=== PATIENT | female | born 1965 | race Caucasian/White ===

== ENCOUNTER 2018-01-09 07:51 | Day surgery (SDC) | payer MEDICAID ==
[2018-01-06 15:57] VITALS: BMI 29.6
[~2018-01-09 07:51] MED LIST: LACTATED RINGERS 1,000 ML IV SCH
[2018-01-09] MEDS ORDERED: LIDOCAINE 1% 20 ML VIAL (10MG/ML) FOR IV START INTRADERMA ONE (08:25)
[2018-01-09 08:27] VITALS: TEMP 98.6
[2018-01-09] MEDS ORDERED: LIDOCAINE 1% INJ 10MG/ML (20 ML MDV) ONE (08:56)
[2018-01-09] MEDS ORDERED: PROPOFOL 10 MG/ML 20 ML VIAL IV ONE (08:56)
--- NOTE | 2018-01-09 09:11 | P.GSHP ---
History of Present Illness H&P Date: 01/09/18 Chief Complaint: GERD Patient here today for upper endoscopy. She has not had one previously. She has history of chronic reflux. She has been on omeprazole daily for the last 10 -20 years. She may have mild dysphagia times. Past Medical History Past Medical History: Asthma, Fibromyalgia, GERD/Reflux, Hypertension, Osteoarthritis (OA) Additional Past Medical History / Comment(s): allergy induced asthma, lost weight & no longer needs BP med. History of Any Multi-Drug Resistant Organisms: None Reported Past Surgical History: Cholecystectomy, Hysterectomy, Orthopedic Surgery, Tonsillectomy Additional Past Surgical History / Comment(s): sinus surg., arthroscopy knee Past Anesthesia/Blood Transfusion Reactions: Previous Problems w/ Anesthesia Additional Past Anesthesia/Blood Transfusion Reaction / Comment(s): very high BP after sinus surg-thinks was probably due to a medication given not anesthesia Smoking Status: Never smoker - Past Family History Mother Family Medical History: No Reported History Medications and Allergies Home Medications Medication Instructions Recorded Confirmed Type Fluticasone Propionate 1 spray INHALATION DAILY 07/30/15 01/06/18 History Meloxicam [Meloxicam] 15 mg PO DAILY 07/30/15 01/06/18 History Cholecalciferol [Vitamin D3] 1,000 unit PO DAILY 01/06/18 01/06/18 History Fexofenadine HCl [Marivel Allergy] 180 mg PO DAILY 01/06/18 01/06/18 History Multivit with Calcium,Iron,Min 1 each PO DAILY 01/06/18 01/06/18 History [Women's Multivitamin] Omeprazole [PriLOSEC] 20 mg PO Q2D 01/06/18 01/06/18 History Allergies Allergy/AdvReac Type Severity Reaction Status Date / Time Penicillins Allergy Rash/Hives Verified 01/09/18 07:59 Sulfa (Sulfonamide Allergy Rash/Hives Verified 01/09/18 07:59 Antibiotics) codeine AdvReac Confusion Verified 01/09/18 07:59 Surgical - Exam Vital Signs Temp Pulse Resp BP Pulse Ox 98.6 F 85 16 139/84 100 01/09/18 08:26 01/09/18 08:26 01/09/18 08:26 01/09/18 08:26 01/09/18 08:26 Physical exam: General: Well-developed, well-nourished HEENT: Normocephalic, sclerae nonicteric Abdomen: Nontender, nondistended Extremities: No edema Neuro: Alert and oriented Assessment and Plan (1) GERD (gastroesophageal reflux disease) Narrative/Plan: Will proceed with upper endoscopy at this time. Current Visit: Yes Status: Acute Code(s): K21.9 - GASTRO-ESOPHAGEAL REFLUX DISEASE WITHOUT ESOPHAGITIS SNOMED Code(s): 765255473
--- NOTE | 2018-01-09 09:18 | P.PCN ---
Date of Procedure: 01/09/18 Procedure(s) Performed: Preoperative Dx: GERD Postoperative Dx: Mild duodenitis, mild gastritis Procedure: EGD with Bx Anesthesia: Sedation Endoscopist: Dr. Bear Specimens: Duodenum, antrum Endoscopic Procedure: The patient was on the endoscopy table in the left decubitus position. The Olympus gastroscope was inserted into the oropharynx and passed under direct visualization to the region of the third portion of the duodenum. From that point the scope was slowly withdrawn inspecting all surfaces carefully. There was mild duodenitis present. A biopsy was taken. The pylorus was widely patent. The stomach was carefully inspected. There was gastritis present. A biopsy of the antrum took place to rule out H. pylori. Retroflexion revealed a normal hiatus. The esophagus was then carefully examined. There were no neoplastic inflammatory or polypoid lesions throughout the visualized esophagus. The patient was then taken to the recovery room in stable condition per anesthesia guidelines. Recommendations: Await biopsy results. Continue when necessary antiacid therapy.
[2018-01-09 09:34] VITALS: BP 112/72; PULSE 74; RESP 18
== END 2018-01-09 09:55 | disposition home or self-care (01) ==
LOC: ORWHC2ENDO 07:51
PROVIDERS: ATTEND Surgery
DX: K29.50 Unspecified chronic gastritis without bleeding (principal); K21.9 Gastro-esophageal reflux disease without esophagitis; K29.80 Duodenitis without bleeding; J45.909 Unspecified asthma, uncomplicated; M79.7 Fibromyalgia; I10 Essential (primary) hypertension; M19.90 Unspecified osteoarthritis, unspecified site; Z90.49 Acquired absence of other specified parts of digestive tract; Z90.710 Acquired absence of both cervix and uterus; Z79.51 Long term (current) use of inhaled steroids; Z79.1 Long term (current) use of non-steroidal anti-inflammatories (NSAID); Z79.899 Other long term (current) drug therapy; Z88.0 Allergy status to penicillin; Z88.2 Allergy status to sulfonamides; Z88.5 Allergy status to narcotic agent
CPT/HCPCS: 88305; 43239; J2001; J2704

== ENCOUNTER → 2018-09-10 | Outpatient (CLI) | payer MEDICAID ==
[2018-09-10 08:18] LABS: HCT 42.1 % (34.0-46.0); HGB 13.5 gm/dL (11.4-16.0); MCH 27.8 pg (25.0-35.0); MCHC 32.2 g/dL (31.0-37.0); MCV 86.5 fL (80.0-100.0); Mean Platelet Volume 6.8; Platelet Count 309 k/uL (150-450); RBC 4.86 m/uL (3.80-5.40); RDW 13.4 % (11.5-15.5); WBC 4.6 k/uL (3.8-10.6)
[2018-09-10 08:29] LABS: ALT 27 U/L (9-52); AST 22 U/L (14-36); Albumin 4.1 g/dL (3.5-5.0); Alkaline Phosphatase 69 U/L (38-126); Anion Gap 9 mmol/L; Blood Urea Nitrogen 18 mg/dL (7-17); Calcium 9.4 mg/dL (8.4-10.2); Carbon Dioxide 25 mmol/L (22-30); Chloride 105 mmol/L (98-107); Cholesterol 185 mg/dL (<200); Glucose 92 mg/dL (74-99); HDL Cholesterol 51 mg/dL (40-60); LDL Cholesterol,Calculated 114 mg/dL (0-99); Potassium 5.1 mmol/L (3.5-5.1); Sodium 139 mmol/L (137-145); Total Bilirubin 0.4 mg/dL (0.2-1.3); Total Protein 7.8 g/dL (6.3-8.2); Triglycerides 101 mg/dL (<150)
[2018-09-10 08:45] LABS: T4, Free (Free Thyroxine) 1.28 ng/dL (0.78-2.19)
== END ==
LOC: LABWHC1 07:23
PROVIDERS: ATTEND Family Medicine
DX: Z00.00 Encounter for general adult medical examination without abnormal findings (principal)
CPT/HCPCS: 36415; 80053; 80061; 84439; 84443; 85027

== ENCOUNTER → 2018-10-07 | Outpatient (CLI) | payer MEDICAID ==
--- NOTE | 2018-10-08 10:00 | BD ---
EXAMINATION TYPE: Axial Bone Density DATE OF EXAM: 10/07/2018 COMPARISON: DEXA bone scan May 25, 2014 CLINICAL HISTORY: Postmenopausal female Height: 67.5 Weight: 229.2 FRAX RISK QUESTIONS: Alcohol (3 or more units per day): no Family History (Parent hip fracture): no Glucocorticoids (More than 3mos): no (Ex: prednisone, prednisolone, methylprednisolone, dexamethasone, and hydrocortisone). History of Fracture in Adulthood: no Secondary Osteoporosis: 1. Type 1 Diabetes: no 2. Hyperthyroidism: no 3. Menopause before 45: yes 4. Malnutrition: no 5. Chronic liver disease: no Rheumatoid Arthritis: no Current Tobacco Use: no RISK FACTORS HISTORY OF: Family History of Osteoporosis: yes Active: yes Diet low in dairy products/other sources of calcium: no Postmenopausal woman: age 37 Lost more than 2 inches in height since high school: no MEDICATIONS: mobic, omeprazole Additional History: EXAM MEASUREMENTS: Bone mineral densitometry was performed using the Weblance System. Bone mineral density as measured about the Lumbar spine is: ----- L1-L4(G/cm2): 1.344 T Score Values are as follows: ----- L2: 1.2 ----- L3: 1.7 ----- L4: 1.7 ----- L1-L4: 1.4 Bone mineral density has: decreased -6.1 % since study of: 05.25.2014 Bone mineral density about the R hip (g/cm2): 1.121 Bone mineral density about the L hip (g/cm2): 1.153 T Score values are as follows: -----R Neck: 0.6 -----L Neck: 0.8 -----R Total: 1.9 -----L Total: 1.9 Bone mineral density has: decreased -7.1 % since study of: 05.25.2014 IMPRESSION: Normal (Values between +1 and -1 indicate normal bone mass). Consider repeating this study in 5 year s or sooner if there is some new clinical indication. NOTE: T-SCORE=SD OF THE YOUNG ADULT MEAN.
--- NOTE | 2018-10-08 12:23 | MM ---
Reason for exam: screening (asymptomatic). Last mammogram was performed 1 year ago. History: Patient is postmenopausal and had first child at age 29. Benign US left guided mammotome of the left breast, February 09, 2008. Took hormonal contraceptives for 8 years beginning at age 18. Physical Findings: A clinical breast exam by your physician is recommended on an annual basis and results should be correlated with mammographic findings. MG 3D Screening Mammo W/Cad Bilateral CC and MLO view(s) were taken. Prior study comparison: September 26, 2017, bilateral MG 3d screening mammo w/cad. September 16, 2016, bilateral MG 3d screening mammo w/cad. The breast tissue is heterogeneously dense. This may lower the sensitivity of mammography. Stable calcifications. No significant changes when compared with prior studies. ASSESSMENT: Benign, BI-RAD 2 RECOMMENDATION: Routine screening mammogram of both breasts in 1 year.
== END | disposition home or self-care (01) ==
LOC: RADMAMWWP 15:38
PROVIDERS: ATTEND Obstetrics & Gynecology
DX: Z12.31 Encounter for screening mammogram for malignant neoplasm of breast (principal); Z13.820 Encounter for screening for osteoporosis
CPT/HCPCS: 77063; 77067; 77080

== ENCOUNTER → 2019-12-17 | Outpatient (CLI) | payer MEDICAID ==
--- NOTE | 2019-12-20 14:06 | MM ---
Reason for exam: screening (asymptomatic). Last mammogram was performed 1 year and 2 months ago. History: Patient is postmenopausal and had first child at age 29. Benign US left guided mammotome of the left breast, February 09, 2008. Took hormonal contraceptives for 8 years beginning at age 18. Physical Findings: A clinical breast exam by your physician is recommended on an annual basis and results should be correlated with mammographic findings. MG 3D Screening Mammo W/Cad Bilateral CC and MLO view(s) were taken. Prior study comparison: October 07, 2018, bilateral MG 3d screening mammo w/cad. September 26, 2017, bilateral MG 3d screening mammo w/cad. The breast tissue is heterogeneously dense. This may lower the sensitivity of mammography. There are benign appearing round calcifications bilaterally. Previous mammotome biopsy in the left breast. There is no discrete abnormality. ASSESSMENT: Benign, BI-RAD 2 RECOMMENDATION: Routine screening mammogram of both breasts in 1 year.
== END | disposition home or self-care (01) ==
LOC: RADMAMWWP 15:34
PROVIDERS: ATTEND Obstetrics & Gynecology
DX: Z12.31 Encounter for screening mammogram for malignant neoplasm of breast (principal)
CPT/HCPCS: 77063; 77067

== ENCOUNTER → 2020-01-28 | Outpatient (CLI) | payer MEDICAID ==
--- NOTE | 2020-01-28 16:41 | MR ---
EXAMINATION TYPE: MR shoulder RT wo con DATE OF EXAM: 01/28/2020 COMPARISON: Outside right shoulder x-ray January 12, 2020. HISTORY: Rt shoulder pain per order. Additional symptoms of difficulty raising overhead per patient. TECHNIQUE: Multiplanar, multisequence imaging of the right shoulder is performed without contrast. FINDINGS: Rotator Cuff: Some increased signal in distal supraspinatus tendon. There is more prominent increased signal involving the infraspinatus tendon near humeral head insertion without focal tear. Subscapula ris tendon felt intact. Rotator cuff muscle bulk preserved. Acromioclavicular Joint: Moderate capsular hypertrophy with fluid seen superior to the AC joint. This becomes more focal anteriorly raising concern for bursitis. Prominent spur from inferior margin of t he distal clavicle. Subchondral cystic change in the distal clavicle. Distal acromion morphology unre markable. Loss of underlying fat plane noted. Glenohumeral Joint: Mild to moderate narrowing most prominent inferiorly with small to moderate gleno humeral joint effusion. No significant spurring. Labrum: The labrum appears grossly intact given limitation of non-arthrogram study. Biceps Tendon: The long head of biceps is in normal location within bicipital groove. Bone marrow signal: Subchondral cystic changes superolateral aspect humeral head including a dominant 1.4 cm thin-walled cyst favor subchondral cyst anteriorly axial image 13. Other: Fluid signal subdeltoid/subacromial bursa. IMPRESSION: 1. Tendinosis of the supraspinatus and to a slightly greater degree infraspinatus tendons. No signifi cant tearing. 2. Fairly moderate degenerative changes right shoulder as detailed above. Underlying impingement susp ected. 3. Mild to moderate subdeltoid/subacromial bursitis.
== END | disposition home or self-care (01) ==
LOC: RADMRIMAIN 15:46
PROVIDERS: ATTEND Orthopaedic Surgery
DX: M19.011 Primary osteoarthritis, right shoulder (principal); M67.813 Other specified disorders of tendon, right shoulder

== ENCOUNTER → 2020-12-12 | Outpatient (CLI) | payer MEDICAID ==
--- NOTE | 2020-12-12 15:55 | MR ---
EXAMINATION TYPE: MR knee LT wo con DATE OF EXAM: 12/12/2020 COMPARISON: Radiograph 11/15/2020 HISTORY: 55-year-old female left knee pain TECHNIQUE: Multiplanar, multisequence imaging of the left knee is performed without IV contrast. FINDINGS: The ACL, PCL, and LCL complex appear intact. There is some thickening of the proximal to mid MCL sugg esting old injury. Degenerative signal within the posterior horn and body of the medial meniscus. There is truncation to the inner margin of the meniscal body suggesting inner margin radial tear. Degenerative spurring in the medial compartment with mild superficial cartilage loss along the mid we ightbearing aspect. Lateral meniscus is intact. There is moderate irregular cartilage loss along the mid weightbearing as pect of the tibial articular surface measuring 9 mm. Marginal spurring is present. There is more severe full-thickness cartilage loss along the lateral patellar facet and lateral troch lear facet. Moderate irregular cartilage loss along the medial trochlear facet. Marginal spurring is present with degenerative subchondral signal changes. Extensor mechanism is intact. Thickening and intermediate signal involving some of the semimembranosu s insertion onto the tibia. Small knee joint effusion. Small Penn cyst measuring 6.0 cm. Normal popliteal artery anatomy and muscle bulk. No suspicious bone marrow replacement. IMPRESSION: 1. Some truncation to the body of the medial meniscus suggesting inner margin fraying/radial tear. De generative signal within the remaining posterior horn and body. 2. Moderate to severe patellofemoral compartmental osteoarthrosis. 3. Focal 9 mm moderate thickness irregular cartilage loss along the mid weightbearing aspect of the l ateral femoral condyle. 4. Mild to moderate strain at the semimembranosus insertion. 5. Small knee joint effusion and small Penn's cyst.
== END | disposition home or self-care (01) ==
LOC: RADMRIMAIN 11:18
PROVIDERS: ATTEND Orthopaedic Surgery
DX: S86.812A Strain of other muscle(s) and tendon(s) at lower leg level, left leg, initial encounter (principal); M17.12 Unilateral primary osteoarthritis, left knee

== ENCOUNTER → 2021-02-01 | Outpatient (CLI) | payer MEDICAID ==
[2021-02-01 14:51] LABS: Basophils # (A) 0.1 k/uL (0-0.2); Basophils % (A) 1 %; Eosinophils # (A) 0.2 k/uL (0-0.7); Eosinophils % (A) 5 %; HGB 14.5 gm/dL (11.4-16.0); Lymphocytes % (A) 39 %; MCV 84.9 fL (80.0-100.0); Monocytes # (A) 0.4 k/uL (0-1.0); Monocytes % (A) 8 %; Neutrophils # (A) 2.2 k/uL (1.3-7.7); Neutrophils % (A) 44 %; Platelet Count 335 k/uL (150-450); RBC 5.18 m/uL (3.80-5.40); RDW 13.1 % (11.5-15.5); WBC 5.1 k/uL (3.8-10.6)
== END | disposition home or self-care (01) ==
LOC: LABPAT 13:20
PROVIDERS: ATTEND Orthopaedic Surgery
DX: Z01.812 Encounter for preprocedural laboratory examination (principal); M23.92 Unspecified internal derangement of left knee
CPT/HCPCS: 36415; 80051; 85025; 93005

== ENCOUNTER → 2021-02-12 | Outpatient (CLI) | payer MEDICAID ==
--- NOTE | 2021-02-14 11:44 | MM ---
Reason for exam: screening (asymptomatic). Last mammogram was performed 1 year and 2 months ago. History: Patient is postmenopausal and had first child at age 29. Benign US left guided mammotome of the left breast, February 09, 2008. Took hormonal contraceptives for 8 years beginning at age 18. Physical Findings: A clinical breast exam by your physician is recommended on an annual basis and results should be correlated with mammographic findings. MG 3D Screening Mammo W/Cad Bilateral CC and MLO view(s) were taken. Prior study comparison: December 17, 2019, bilateral MG 3d screening mammo w/cad. October 07, 2018, bilateral MG 3d screening mammo w/cad. The breast tissue is heterogeneously dense. This may lower the sensitivity of mammography. No significant changes when compared with prior studies. ASSESSMENT: Benign, BI-RAD 2 RECOMMENDATION: Routine screening mammogram of both breasts in 1 year.
== END ==
LOC: RADMAMWWP 15:52
PROVIDERS: ATTEND Obstetrics & Gynecology
DX: Z12.31 Encounter for screening mammogram for malignant neoplasm of breast (principal); Z78.0 Asymptomatic menopausal state
CPT/HCPCS: 77063; 77067

== ENCOUNTER 2021-02-14 09:09 | Day surgery (SDC) | payer MEDICAID ==
[2021-02-12 15:54] VITALS: BMI 34.0
--- NOTE | 2021-02-13 15:15 | HP ---
HISTORY AND PHYSICAL Surgery is 02/14/2021. Lyndsey Rudd is a 55-year-old patient seen with progressive left knee pain. We discussed options for treatment. She elected to proceed with arthroscopy. Consent was obtained. PAST MEDICAL HISTORY: Asthma, osteoarthritis. PAST SURGICAL HISTORY: Left knee arthroscopy. DAILY MEDICATIONS: 1. Prilosec. 2. Flonase. 3. Mobic. ALLERGIES: PENICILLIN, SULFA. SOCIAL HISTORY: She denies tobacco use. PHYSICAL EVALUATION OF THE LEFT KNEE: Range of motion is -2 to 110. Mild effusion. Tenderness medial joint line. Positive medial Carito's. Medial patellofemoral crepitus on range of motion. Pain with patellofemoral compression. Ligaments stable. Hip rotation without pain. Distal neurovascular exam is intact. Radiographs of the left knee revealed moderate osteoarthritic changes of the left knee. MRI revealed medial meniscal tear. IMPRESSION: 1. Internal derangement left knee with medial meniscal tear. 2. Asthma. 3. History of osteoarthritis. PLAN: Left knee arthroscopy with partial meniscectomy, partial synovectomy and debridement. MMODL / IJN: [id number] /
[~2021-02-14 09:09] MED LIST changes: +DEXAMETHASONE SOD PHOSPHATE 4 MG/ML 1 ML VIAL IV PRN; +KETOROLAC 15 MG/ML 1 ML VIAL IVP SCH; +LIDOCAINE 1% (10MG/ML) FOR IV START INTRADERMA PRN; +METOCLOPRAMIDE 5 MG/ML 2 ML VIAL IVP PRN; +ONDANSETRON 4 MG/2 ML VIAL IVP PRN
[2021-02-14] MEDS ORDERED: SCOPOLAMINE 1.5MG/72HR PATCH TRANSDERM ONE (09:55)
[2021-02-14 10:04] VITALS: TEMP 98.3
[2021-02-14] MEDS ORDERED: PROPOFOL 10 MG/ML 20 ML VIAL IV ONE (10:43)
[2021-02-14] MEDS ORDERED: SUCCINYLCHOLINE CHLORIDE 100 MG/5 ML SYR IV ONE (10:43)
[2021-02-14] MEDS ORDERED: fentaNYL (PF) 50 MCG/ML 2 ML AMP ONE (10:43)
[2021-02-14] MEDS ORDERED: LIDOCAINE 1% INJ 10MG/ML (20 ML MDV) ONE (10:43)
[2021-02-14] MEDS ORDERED: MIDAZOLAM 2 MG/2 ML VIAL ONE (10:43)
[2021-02-14] MEDS ORDERED: BUPIVACAINE (PF) 0.25% 30 ML VIAL SQ ONE ×2 (11:06→11:20)
--- NOTE | 2021-02-14 11:38 | P.OP ---
Date of Procedure: 02/14/21 Preoperative Diagnosis: Internal derangement left knee Postoperative Diagnosis: 1. Tear medial meniscus left knee 2. Medial plica left knee 3. Reactive synovitis medial, lateral and suprapatellar compartments left knee 4. Grade 2 chondromalacia medial femoral condyle left knee 5. Grade 4 chondromalacia patellofemoral joint left knee Procedure(s) Performed: 1. Arthroscopic partial medial meniscectomy left knee 2. Arthroscopic resection medial plica left knee 3. Arthroscopic partial synovectomy medial, lateral and suprapatellar compartments left knee 4. Arthroscopic chondroplasty femoral condyle left knee Anesthesia: JESSICA, local Surgeon: Arnold Lozano Estimated Blood Loss (ml): 7 Pathology: none sent Condition: stable Disposition: PACU Indications for Procedure: 55-year-old patient seen with progressive left knee pain. After treatment options were discussed, she elected to proceed with arthroscopy. Operative Findings: See description of procedure Description of Procedure: Patient was taken to the operative suite. Patient underwent a general anesthetic by the department of anesthesia. Patient was given preoperative antibiotics. The left lower extremity was placed in a well-padded arthroscopic leg carbajal. The left leg was prepped and draped in the normal sterile orthopedic fashion. A lateral parapatellar and suprapatellar incision was made. Trochars were inserted. Arthroscopy was initiated. Suprapatellar pouch revealed diffuse thick reactive synovitis. The patellofemoral joint appeared to articulate congruently. There was grade 4 chondromalacia of the patella and femoral sulcus with large areas of exposed bone on both sides. The scope was guided into the medial gutter. Is a very large medial plica which impinged along the medial femoral condyle with range of motion. There appeared to be some erosion of the articular cartilage in that area as well. The scope was then guided into the medial compartment. A medial parapatellar incision was made. Trocar inserted followed by probe. There was a small radial tear posterior horn medial meniscus. There was an area of grade 2 chondromalacia medial femoral condyle with some osteochondral flap tears. There was some thick reactive synovitis anteriorly. I performed a partial medial meniscectomy getting down to stable meniscal tissue. I performed a chondroplasty of the medial femoral condyle getting down to stable osteochondral tissue. I performed a partial synovectomy decompressing the reactive synovitis anteriorly. The residual meniscus was stable. The residual osteochondral surface was stable. There was good decompression of the synovitis. Scope and probe were then guided into the intercondylar notch. Cruciates were identified, probed and found to be stable. The scope and probe were then guided into lateral compartment. Lateral meniscus revealed some mild fraying along the midbody area. There were some grade 1 chondromalacia changes lateral compartment. There was thick reactive synovitis anteriorly. I introduced a motorized shaver. I debrided the area of superficial fraying. I performed a partial synovectomy decompressing the reactive synovitis. The shaver was removed. There was good decompression of synovitis. The scope was in guided back into the suprapatellar compartment. I introduced a motorized shaver into the super patellar compartment. I resected that medial plica. I performed a partial synovectomy decompressing the thick reactive synovitis. The shaver was removed. I now took the knee through range of motion and noted complete resection medial plica and no impingement of the medial femoral condyle. There was good decompression of synovitis. I took one more look around the entire knee, no residual debris. Instruments were now removed from the joint. The joint was infiltrated with .25% Marcaine. Steri-Strips were applied to the portal sites. Sterile dressings were applied. The patient was placed into a JESSICA hose. No tourniquet was utilized. The patient was awakened, transferred to a bed and taken to recovery stable satisfactory condition.
[2021-02-14] MEDS: HYDROmorphone 0.5 MG/0.5 ML SYRINGE IVP PRN ×4 (11:40→12:36)
[2021-02-14] MEDS ORDERED: KETOROLAC 15 MG/ML 1 ML VIAL IVP ONE (11:42)
[2021-02-14] MEDS ORDERED: LACTATED RINGERS 1,000 ML IV ONE ×2 (11:43)
[2021-02-14 13:31] VITALS: BP 156/84; PULSE 77; RESP 16
== END 2021-02-14 13:51 | disposition home or self-care (01) ==
LOC: OR 09:09
PROVIDERS: ATTEND Orthopaedic Surgery
DX: M23.322 Other meniscus derangements, posterior horn of medial meniscus, left knee (principal); M67.52 Plica syndrome, left knee; M65.862 Other synovitis and tenosynovitis, left lower leg; M22.42 Chondromalacia patellae, left knee; J45.909 Unspecified asthma, uncomplicated; M19.90 Unspecified osteoarthritis, unspecified site; M79.7 Fibromyalgia; Z79.899 Other long term (current) drug therapy; Z88.0 Allergy status to penicillin; Z88.2 Allergy status to sulfonamides; Z88.5 Allergy status to narcotic agent
CPT/HCPCS: 29881; J2250; J1100; J0690; J2405; J2001; J3010; J1885; J0330; J2704; J1170

== ENCOUNTER → 2021-09-13 | Outpatient (CLI) | payer MEDICAID ==
[2021-09-13 11:21] LABS: HCT 44.3 % (37.2-46.3); MCH 27.2 pg (27.0-32.0); MCHC 31.6 g/dL (32.0-37.0); Mean Platelet Volume 9.8 fL (9.5-12.2); Platelet Count 364 X 10*3/uL (140-440); RBC 5.15 X 10*6/uL (4.10-5.20); RDW 13.3 % (11.5-14.5); WBC 4.83 X 10*3/uL (4.50-10.00)
[2021-09-13 15:28] LABS: African American GFR (CKD) 111.8 (60.0-200.0); Albumin 4.5 g/dL (3.8-4.9); Albumin/Globulin Ratio 1.4 (1.60-3.17); Anion Gap 14.6 mmol/L (4.00-12.00); BUN/Creat Ratio 24.45 Ratio (12.00-20.00); Blood Urea Nitrogen 16.6 mg/dL (9.0-27.0); Calcium 9.5 mg/dL (8.7-10.3); Carbon Dioxide 22.3 mmol/L (21.6-31.8); Chol/HDL Ratio 3.53 Ratio; Globulin 3.2 g/dL (1.6-3.3); HDL Cholesterol 50.1 mg/dL (40.00-60.00); LDL Cholesterol,Calculated 105.3 mg/dL (0.0-131.0); Non-African American GFR(CKD) 96.5 (60.0-200.0); Potassium 4.9 mmol/L (3.5-5.5); Total Bilirubin 0.3 mg/dL (0.30-1.20); Total Protein 7.7 g/dL (6.2-8.2); VLDL Calculation 21.6 mg/dL (5.00-40.00)
== END | disposition home or self-care (01) ==
LOC: LABWHC1 07:46
PROVIDERS: ATTEND Family Medicine
DX: Z00.00 Encounter for general adult medical examination without abnormal findings (principal)
CPT/HCPCS: 36415; 80053; 80061; 82306; 84439; 84443; 85027

== ENCOUNTER → 2022-01-03 | Outpatient (CLI) | payer MEDICAID, OTHER ==
[~2022-01-03] MED LIST changes: -DEXAMETHASONE SOD PHOSPHATE 4 MG/ML 1 ML VIAL IV PRN; -KETOROLAC 15 MG/ML 1 ML VIAL IVP SCH; -LACTATED RINGERS 1,000 ML IV SCH; -LIDOCAINE 1% (10MG/ML) FOR IV START INTRADERMA PRN; -METOCLOPRAMIDE 5 MG/ML 2 ML VIAL IVP PRN; -ONDANSETRON 4 MG/2 ML VIAL IVP PRN; +SODIUM CHLORIDE 0.9% 50 ML IVPB ONE; +SODIUM CHLORIDE 0.9% 500 ML 500 ML in EMPTY BAG 1 BAG IV PRN; +SOTROVIMAB (EUA) 500 MG in SODIUM CHLORIDE 0.9% 100 ML IVPB ONE
[2022-01-03 13:49] VITALS: TEMP 99.5
[2022-01-03 13:55] VITALS: RESP 16
[2022-01-03 14:33] VITALS: BP 147/83; PULSE 79
== END | disposition home or self-care (01) ==
LOC: PROCWHC3 12:56
PROVIDERS: ATTEND Family Medicine
DX: U07.1 COVID-19 (principal)
CPT/HCPCS: 96360; Q0247; M0247

== ENCOUNTER → 2022-02-25 | Outpatient (CLI) | payer MEDICAID ==
--- NOTE | 2022-02-26 15:16 | MM ---
Reason for exam: screening (asymptomatic). Last mammogram was performed 1 year ago. History: Patient is postmenopausal and had first child at age 29. Benign US left guided mammotome of the left breast, February 09, 2008. Took hormonal contraceptives for 8 years beginning at age 18. Physical Findings: A clinical breast exam by your physician is recommended on an annual basis and results should be correlated with mammographic findings. MG 3D Screening Mammo W/Cad Bilateral CC and MLO view(s) were taken. Prior study comparison: February 12, 2021, bilateral MG 3d screening mammo w/cad. December 17, 2019, bilateral MG 3d screening mammo w/cad. October 07, 2018, bilateral MG 3d screening mammo w/cad. Finding: There are increased coarse heterogeneous, grouped/clustered calcifications in the middle position of the right breast CC view. New finding since February 12, 2021, December 17, 2019, and October 07, 2018. ASSESSMENT: Incomplete: need additional imaging evaluation, BI-RAD 0 RECOMMENDATION: Special view mammogram of the right breast. [facility] will attempt to contact patient to return for supplemental views.
== END | disposition home or self-care (01) ==
LOC: RADMAMWWP 16:00
PROVIDERS: ATTEND Obstetrics & Gynecology
DX: Z12.31 Encounter for screening mammogram for malignant neoplasm of breast (principal)
CPT/HCPCS: 77063; 77067

== ENCOUNTER → 2022-03-04 | Outpatient (CLI) | payer MEDICAID ==
--- NOTE | 2022-03-05 11:19 | MM ---
Reason for exam: additional evaluation requested from abnormal screening. Last mammogram was performed less than 1 month ago. History: Patient is postmenopausal and had first child at age 29. Benign US left guided mammotome of the left breast, February 09, 2008. Took hormonal contraceptives for 8 years beginning at age 18. Physical Findings: A clinical breast exam by your physician is recommended on an annual basis and results should be correlated with mammographic findings. MG 3D Work Up W/Cad RT CC and LM view(s) were taken of the right breast. Prior study comparison: February 25, 2022, bilateral MG 3d screening mammo w/cad. February 12, 2021, bilateral MG 3d screening mammo w/cad. There are scattered fibroglandular densities. 6 o'clock central right breast microcalcifications are heterogeneous and new. Biopsy recommended. ASSESSMENT: Suspicious, BI-RAD 4 RECOMMENDATION: Stereotactic core biopsy of the right breast. Called Dr. Siu's office with mammographic findings and has scheduled an appointment for the patient for 04/25/22 at 10:[address] Bear. Biopsy scheduled for 03/25/22 at 7:30. PRELIMINARY REPORT CALLED AND FAXED TO DR. BEAR ON 03/05/22.
== END | disposition home or self-care (01) ==
LOC: RADMAMWWP 13:44
PROVIDERS: ATTEND Obstetrics & Gynecology
DX: R92.8 Other abnormal and inconclusive findings on diagnostic imaging of breast (principal)
CPT/HCPCS: 77061; 77065

== ENCOUNTER → 2022-03-25 | Day surgery (SDC) | payer MEDICAID ==
--- NOTE | 2022-03-25 16:07 | MM ---
EXAMINATION TYPE: MG stereo VAD BX RIGHT DATE OF EXAM: 03/25/2022 COMPARISON: NONE CLINICAL HISTORY: Abnormal mammogram, calcifications TECHNIQUE: Stereotactic guided core biopsy of right breast. FINDINGS: The procedure of stereotactic guided core biopsy was explained to the patient. Benefits, alternatives, and risks were discussed. An informed consent was then obtained. The shortness pathway for biopsy was chosen. Shortness pathway was superior approach. Targeting was provided by radiology. The procedure was performed by radiology. Skin was anesthetized 1% lidocaine. Deeper breast tissue was anesthetized with 1% lidocaine. A vacuum assisted biopsy gun was used to obtain 6 core samples. There is deployment of a core marker at the biopsy site. The patient tolerated the procedure well without any immediate complication. The patient was kept in the radiology department for short stay after the procedure and then discharged home in stable condition. Specimen: Targeted calcifications are identified in specimen mammogram. IMPRESSION: 1. Successful serotactic core biopsy right breast calcifications.. Recommendations: 1. Recommendations are pending pathology results. Pathology Results: Benign RIGHT BREAST, CORE BIOPSY: Fibroadenomatoid fibrosis with microcalcification and apocrine metaplasia. Negative for in situ or invasive malignancy. Recommendation Follow up mammogram of the right breast in 6 months. AUBREY
== END ==
LOC: RADMAMWWP 12:42
PROVIDERS: ATTEND Surgery
DX: N60.81 Other benign mammary dysplasias of right breast (principal)
CPT/HCPCS: 19081; 88305; A4648

== ENCOUNTER → 2022-11-08 | Outpatient (CLI) | payer MEDICAID ==
--- NOTE | 2022-11-08 14:17 | MM ---
Reason for Exam: Follow-up at short interval from prior study. Last screening mammogram was performed 9 month(s) ago. Patient History: Menarche at age 10. First Full-Term at age 29. Late child-bearing (after 28). Hysterectomy at age 37. Postmenopausal. Patient has history of breast feeding. Hormonal Contraceptives, starting at age 18 for 8 years. 03/25/2022, Benign Core Biopsy on the right side. 02/09/2008, Benign Core Biopsy on the left side. Risk Values: Alejandra 5 year model risk: 2.9%. NCI Lifetime model risk: 14.9%. Prior Study Comparison: 02/12/2021 Bilateral Screening Mammogram, [facility]. 02/25/2022 Bilateral Screening Mammogram, [facility]. 03/04/2022 Right Diagnostic Mammogram, [facility]. Tissue Density: Right: There are scattered fibroglandular densities. Findings: Analyzed By CAD. There is mammotome biopsy clip in the right breast. There are scattered and loosely grouped small benign-appearing round calcifications in the right breast redemonstrated. Benign-appearing right axillary lymph nodes redemonstrated. No suspicious new distortion or group of microcalcification in the right breast. Overall Assessment: Benign, BI-RAD 2 Management: Screening Mammogram of both breasts in 4 months. Back on annual bilateral schedule. Results were given to the patient verbally at the time of exam. Electronically signed and approved by: Rich Sethi M.D.
== END | disposition home or self-care (01) ==
LOC: RADMAMWWP 12:57
PROVIDERS: ATTEND Surgery
DX: R92.8 Other abnormal and inconclusive findings on diagnostic imaging of breast (principal); Z78.0 Asymptomatic menopausal state
CPT/HCPCS: 77061; 77065

== ENCOUNTER → 2023-05-05 | Outpatient (CLI) | payer MEDICAID ==
--- NOTE | 2023-05-06 08:12 | MM ---
Reason for Exam: Screening (asymptomatic). Last mammogram was performed 1 year(s) and 3 month(s) ago. Patient History: Menarche at age 10. First Full-Term at age 29. Late child-bearing (after 28). Hysterectomy at age 37. Postmenopausal. Patient has history of breast feeding. Hormonal Contraceptives, starting at age 18 for 8 years. 03/25/2022, Benign Core Biopsy on the right side. 02/09/2008, Benign Core Biopsy on the left side. Risk Values: Alejandra 5 year model risk: 2.9%. NCI Lifetime model risk: 14.9%. Prior Study Comparison: 02/25/2022 Bilateral Screening Mammogram, [facility]. 03/04/2022 Right Diagnostic Mammogram, [facility]. 11/08/2022 Right MG 3D diag mammo w/cad RT, [facility]. Tissue Density: The breast tissue is heterogeneously dense. This may lower the sensitivity of mammography. Findings: Analyzed By CAD. There is no suspicious group of microcalcifications or new suspicious mass in either breast. Overall Assessment: Benign, BI-RAD 2 Management: Screening Mammogram of both breasts in 1 year. . Patient should continue monthly self-breast exams. A clinical breast exam by your physician is recommended on an annual basis. This exam should not preclude additional follow-up of suspicious palpable abnormalities. Note on Alejandra scores and lifetime risk: 1. A Alejandra score greater than 3% is considered moderate risk. If this is the case, consider specialist referral to assess eligibility for a risk reducing agent. 2. If overall lifetime risk for the development of breast cancer is 20% or higher, the patient may qualify for future screening with alternating mammogram and breast MRI. Electronically signed and approved by: Coleman Castillo M.D. Radiologis
== END | disposition home or self-care (01) ==
LOC: RADMAMWWP 15:51
PROVIDERS: ATTEND Surgery
DX: Z12.31 Encounter for screening mammogram for malignant neoplasm of breast (principal); Z78.0 Asymptomatic menopausal state
CPT/HCPCS: 77063; 77067

== ENCOUNTER 2024-04-20 10:47 | Day surgery (SDC) | payer MEDICAID ==
[2024-04-14 16:13] VITALS: BMI 36.5
[~2024-04-20 10:47] MED LIST changes: +LIDOCAINE 1% (10MG/ML) FOR IV START INTRADERMA PRN; -SODIUM CHLORIDE 0.9% 50 ML IVPB ONE; -SODIUM CHLORIDE 0.9% 500 ML 500 ML in EMPTY BAG 1 BAG IV PRN; -SOTROVIMAB (EUA) 500 MG in SODIUM CHLORIDE 0.9% 100 ML IVPB ONE
[2024-04-20] MEDS: LACTATED RINGERS 1,000 ML IV SCH (11:03)
[2024-04-20] MEDS ORDERED: PROPOFOL 10 MG/ML 20 ML VIAL IV ONE (11:28)
--- NOTE | 2024-04-20 11:34 | P.GSHP ---
History of Present Illness H&P Date: 04/20/24 Chief Complaint: Colon cancer screening 58-year-old female here for colonoscopy. Last colonoscopy 10 to 10 years ago. No bowel complaints. No family history of colon cancer. Past Medical History Past Medical History: Asthma, Fibromyalgia, GERD/Reflux, Hypertension, Osteoarthritis (OA) Additional Past Medical History / Comment(s): allergy induced asthma, lost weight & no longer needs BP med. History of Any Multi-Drug Resistant Organisms: None Reported Past Surgical History: Cholecystectomy, Hysterectomy, Orthopedic Surgery, Tonsillectomy Additional Past Surgical History / Comment(s): sinus surg., arthroscopy bilat knee. Beast biopsy Left breast 2007 Past Anesthesia/Blood Transfusion Reactions: Previous Problems w/ Anesthesia Additional Past Anesthesia/Blood Transfusion Reaction / Comment(s): very high BP after sinus surg-thinks was probably due to a medication given not anesthesia Smoking Status: Never smoker - Past Family History Mother Family Medical History: No Reported History Medications and Allergies Home Medications Medication Instructions Recorded Confirmed Type Fluticasone Propionate 1 spray INHALATION DAILY 07/30/15 04/20/24 History [Fluticasone Propionate Nasal [place]] Meloxicam 15 mg PO DAILY 07/30/15 04/20/24 History Cholecalciferol [Vitamin D3] 1,000 unit PO DAILY 01/06/18 04/20/24 History Multivit with Calcium,Iron,Min 1 each PO DAILY 01/06/18 04/20/24 History [Women's Multivitamin] Omeprazole [PriLOSEC] 20 mg PO DAILY 01/06/18 04/20/24 History Cetirizine HCl [Zyrtec] 10 mg PO DAILY 02/12/21 04/20/24 History Allergies Allergy/AdvReac Type Severity Reaction Status Date / Time Penicillins Allergy Rash/Hives Verified 04/20/24 11:09 Sulfa (Sulfonamide Allergy Rash/Hives Verified 04/20/24 11:09 Antibiotics) codeine AdvReac Confusion Verified 04/20/24 11:09 Surgical - Exam Vital Signs Temp Pulse Resp BP Pulse Ox 98.4 F 87 18 170/84 99 04/20/24 11:04 04/20/24 11:04 04/20/24 11:04 04/20/24 11:04 04/20/24 11:04 Physical exam: General: Well-developed, well-nourished HEENT: Normocephalic, sclerae nonicteric Abdomen: Nontender, nondistended Extremities: No edema Neuro: Alert and oriented Assessment and Plan (1) Colon cancer screening Narrative/Plan: Will proceed with colonoscopy at this time. Current Visit: Yes Status: Acute Code(s): Z12.11 - ENCOUNTER FOR SCREENING FOR MALIGNANT NEOPLASM OF COLON SNOMED Code(s): 927141603
[2024-04-20 11:37] VITALS: TEMP 98.4
--- NOTE | 2024-04-20 11:43 | P.PCN ---
Date of Procedure: 04/20/24 Procedure(s) Performed: PREOPERATIVE DIAGNOSIS: Colon cancer screening POSTOPERATIVE DIAGNOSIS: Mild diverticulosis PROCEDURE: Colonoscopy ANESTHESIA: MAC SURGEON: Chi Bear M.D. SPECIMENS: None ENDOSCOPIC PROCEDURE: The patient was placed on the endoscopy table in the left decubitus position. The Olympus colonoscope was inserted into the anus and passed under direct visualization to the base of the cecum. The appendiceal orifice was visualized. From that point the scope was slowly withdrawn inspecting all surfaces carefully. There were no neoplastic inflammatory or polypoid lesions throughout the cecum, ascending, transverse, descending, sigmoid and rectum. There was mild scattered left-sided diverticulosis noted. Digital rectal examination was normal. The patient was taken to the recovery room in stable condition per anesthesia guidelines. RECOMMENDATIONS: Resume diet. Repeat colonoscopy 10 years.
[2024-04-20 12:32] VITALS: BP 158/72; PULSE 78; RESP 16
== END 2024-04-20 12:37 | disposition home or self-care (01) ==
LOC: ORWHC2ENDO 10:47
PROVIDERS: ATTEND Surgery
DX: Z12.11 Encounter for screening for malignant neoplasm of colon (principal); K57.30 Diverticulosis of large intestine without perforation or abscess without bleeding; I10 Essential (primary) hypertension; J45.909 Unspecified asthma, uncomplicated; K21.9 Gastro-esophageal reflux disease without esophagitis; M19.90 Unspecified osteoarthritis, unspecified site; M79.7 Fibromyalgia; Z79.1 Long term (current) use of non-steroidal anti-inflammatories (NSAID); Z88.0 Allergy status to penicillin; Z88.1 Allergy status to other antibiotic agents; Z88.2 Allergy status to sulfonamides; Z88.5 Allergy status to narcotic agent; Z90.49 Acquired absence of other specified parts of digestive tract; Z90.710 Acquired absence of both cervix and uterus
CPT/HCPCS: 45378; J2704

== ENCOUNTER 2024-04-28 06:18 | Day surgery (SDC) | payer MEDICAID ==
--- NOTE | 2024-04-26 19:39 | P.HPOR ---
History of Present Illness H&P Date: 04/26/24 Subjective: This is a 58 year old female that presents today for initial evaluation regarding a several year history of worsening bilateral hand numbness and tingling that is worse at nighttime. 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 She has tried wrist bracing at night time with some relief. She denies any injury or inciting event. She recently underwent EMG/NCV and is here to discuss results. Physical Examination: LUE: AIN/PIN/Radial/Ulnar/Median motor intact. Radial/Ulnar/Median SILT. 2+/4 Radial/Ulnar pulses palpated. 5/5 APB, 5/5 FDI. Negative Finkelsteins, negative CMC grind, positive Durkan's compression. RUE: AIN/PIN/Radial/Ulnar/Median motor intact. Radial/Ulnar/Median SILT. 2+/4 Radial/Ulnar pulses palpated. 5/5 APB, 5/5 FDI. Negative Finkelsteins, negative CMC grind, positive Durkan's compression. EMG/NCV: 12/28/23 demonstrates moderate bilateral carpal tunnel syndrome Impression: 1.) Bilateral carpal tunnel syndrome Plan: Diagnosis and treatment options were discussed with the patient. We discussed that she is a candidate for endoscopic versus open carpal tunnel release due to her advancing symptoms that are no longer responding to conservative treatment and EMG and nerve conduction velocity test findings. She wishes to proceed with a right endoscopic vs open carpal tunnel release. Risks and benefits of surgery including bleeding, infection, damage to surounding tissue, residual numbness, need to convert to open procedure were discussed. The patient was agreeable with this plan. -Isaiah Ramsey DO Orthopedic Hand/Upper Extremity Surgeon Past Medical History Past Medical History: Asthma, Fibromyalgia, GERD/Reflux, Hypertension, Osteoarthritis (OA) Additional Past Medical History / Comment(s): allergy exercise induced asthma, lost weight & no longer needs BP med. History of Any Multi-Drug Resistant Organisms: None Reported Past Surgical History: Cholecystectomy, Hysterectomy, Orthopedic Surgery, Tonsillectomy Additional Past Surgical History / Comment(s): sinus surg., arthroscopy bilat knee. Beast biopsy lorna breast rt shoulder Past Anesthesia/Blood Transfusion Reactions: Previous Problems w/ Anesthesia Additional Past Anesthesia/Blood Transfusion Reaction / Comment(s): very high BP after sinus surg-thinks was probably due to a medication given not anesthesia Smoking Status: Never smoker - Past Family History Mother Family Medical History: No Reported History Medications and Allergies Home Medications Medication Instructions Recorded Confirmed Type Fluticasone Propionate 1 spray INHALATION DAILY 07/30/15 04/23/24 History [Fluticasone Propionate Nasal [place]] Meloxicam 15 mg PO DAILY 07/30/15 04/23/24 History Cholecalciferol [Vitamin D3] 1,000 unit PO DAILY 01/06/18 04/23/24 History Multivit with Calcium,Iron,Min 1 each PO DAILY 01/06/18 04/23/24 History [Women's Multivitamin] Omeprazole [PriLOSEC] 20 mg PO DAILY 01/06/18 04/23/24 History Cetirizine HCl [Zyrtec] 10 mg PO DAILY 02/12/21 04/23/24 History Allergies Allergy/AdvReac Type Severity Reaction Status Date / Time Penicillins Allergy Rash/Hives Verified 04/23/24 10:07 Sulfa (Sulfonamide Allergy Rash/Hives Verified 04/23/24 10:07 Antibiotics) codeine AdvReac Confusion Verified 04/23/24 10:07 Physical Examination Osteopathic Statement: *. No significant issues noted on an osteopathic structural exam other than those noted in the History and Physical/Consult.
[~2024-04-28 06:18] MED LIST changes: +LACTATED RINGERS 1,000 ML IV SCH; +ONDANSETRON 4 MG/2 ML VIAL IVP ONE; +Pre Op ABX Message 1 EACH MISC MISCELLANE ONE
[2024-04-28] MEDS ORDERED: fentaNYL (PF) 50 MCG/ML 2 ML AMP IV PRN (07:00)
[2024-04-28] MEDS ORDERED: HYDROmorphone 0.5 MG/0.5 ML SYRINGE IVP PRN (07:00)
[2024-04-28] MEDS: LACTATED RINGERS 1,000 ML IV SCH (07:16)
[2024-04-28] MEDS: ONDANSETRON 4 MG/2 ML VIAL IVP PRN (07:16)
[2024-04-28] MEDS: DEXAMETHASONE SOD PHOSPHATE 4 MG/ML 1 ML VIAL IVP ONE (07:16)
[2024-04-28] MEDS: SCOPOLAMINE 1 MG/72 HR PATCH TRANSDERM ONE (07:16)
[2024-04-28] MEDS ORDERED: LIDOCAINE 1% INJ 10MG/ML (20 ML MDV) ONE (07:24)
[2024-04-28] MEDS ORDERED: MIDAZOLAM 2 MG/2 ML VIAL ONE (07:24)
[2024-04-28] MEDS ORDERED: fentaNYL (PF) 50 MCG/ML 2 ML AMP ONE (07:24)
[2024-04-28] MEDS ORDERED: PROPOFOL 10 MG/ML 20 ML VIAL IV ONE (07:24)
[2024-04-28] MEDS: BUPIVACAINE (PF) 0.5% 30 ML VIAL SQ ONE ×2 (07:24→07:36)
[2024-04-28] MEDS: LIDOCAINE 2% (PF) 20 MG/ML 5 ML VIAL SQ ONE ×4 (07:25→07:36)
--- NOTE | 2024-04-28 07:48 | P.OP ---
Date of Procedure: 04/28/24 Preoperative Diagnosis: Right carpal tunnel syndrome Postoperative Diagnosis: Right carpal tunnel syndrome Procedure(s) Performed: Right endoscopic carpal tunnel release Anesthesia: MAC Surgeon: Isaiah Ramsey Estimated Blood Loss (ml): 0 Pathology: none sent Condition: stable Disposition: PACU Description of Procedure: This is a 58 year old female who presents today for a right endoscopic carpal tunnel release after having failed conservative treatment in the past. Risks and benefits of surgery were discussed with the patient including bleeding, damage to surrounding tissue, infection, need to convert to open procedure, need for further surgery as well as risks of anesthesia including pulmonary embolism and even and the patient wished to proceed with surgical intervention. The patients was seen in the pre-operative area by myself. Consent and H&P were completed and updated. The correct extremity was marked in the pre-operative area by myself and all other questions were answered. Operative Narrative: The patient was brought to the operating room by the department of anesthesia. They remained on the portable stretcher and a rolling hand table was brought to the side of the operative extremity. Pre-operative time out was performed indicating the correct patient, procedure and laterality. All in the room agreed. The patient was then drifted off to sleep by the department of anesthesia. MAC anesthesia was utilized and a 50:50 mixture of 1% Lidocaine and 0.5% bupivacaine was injected into the subcutaneous tissues of the palmar skin, 8ccs total. A nonsterile tourniquet was then applied to the operative extremity and the right upper extremity was then prepped and draped in normal sterile fashion. The operative extremity was the exsanguinated with an esmarch bandage and the tourniquet was inflated to 250mmHg. 15 blade scalpel was utilized to make a transverse incision on the palmar skin just ulnar to the palmaris longus tendon at the level of the distal wrist crease. Ragnell retractor was then placed radially and blunt dissection was performed to reveal the distal forearm fascia. This was lifted with fine Fco pick ups and Littler tenotomy scissors were then used to open the forearm fascia transversely and a double skin hook was then placed. Hamate finder was placed into the carpal tunnel and then sequential sized dilators were inserted followed by the synovial elevator to separate the flexor tenosynovium from the undersurface of the transverse carpal ligament and a washboard texture was felt. The MicroAire endoscopic carpal tunnel release system gun was the then inserted into the carpal tunnel hugging the deep portion of the transverse carpal ligament in line with the base of the ring finger. Transverse fibers of the ligament were directly visualized. Pressure was applied on the palm to reveal the distal extent of the transverse carpal ligament. The blade was then deployed and the distal half of the transverse carpal ligament was released. The scope was then brought distal again and remaining transverse fibers were incised with the blade. The proximal half of the transverse carpal ligament was then divided and again the scope was advanced distal and remaining transverse fibers were incised with the blade. The radial and ulnar leaflets were directly visualized and mobile consistent with complete release. Tenotomy scissors were then utilized to release the remaining distal forearm fascia under direct visualization taking care to preserve the palmar cutaneous branch of the median nerve. Skin closure was performed with interrupted 4-0 Monocryl suture followed by steri strips. Sterile dressing was applied consisting 4x4s, Webril, and an racheal bandage. Tourniquet was let down and the hand immediately was well perfused. The patient was then woken by the department of anesthesia and transferred to PACU in stable condition. Isaiah Ramsey D.O. Orthopedic Hand/Upper Extremity Surgeon
[2024-04-28 08:03] VITALS: RESP 18; TEMP 97.5
[2024-04-28 08:57] VITALS: BP 147/89; PULSE 68
== END 2024-04-28 08:51 | disposition home or self-care (01) ==
LOC: OR 06:18
PROVIDERS: ATTEND Orthopaedic Surgery Hand Surgery
DX: G56.01 Carpal tunnel syndrome, right upper limb (principal); I10 Essential (primary) hypertension; K21.9 Gastro-esophageal reflux disease without esophagitis; M19.90 Unspecified osteoarthritis, unspecified site; M79.7 Fibromyalgia; Z79.1 Long term (current) use of non-steroidal anti-inflammatories (NSAID); Z88.0 Allergy status to penicillin; Z88.1 Allergy status to other antibiotic agents; Z88.2 Allergy status to sulfonamides; Z88.5 Allergy status to narcotic agent; Z90.49 Acquired absence of other specified parts of digestive tract; Z79.899 Other long term (current) drug therapy
CPT/HCPCS: 29848; J2250; J1100; J2405; J2001 ×2; J3010; J2704; J0665

== ENCOUNTER 2024-05-12 11:12 | Day surgery (SDC) | payer MEDICAID ==
--- NOTE | 2024-05-11 09:24 | P.HPOR ---
History of Present Illness H&P Date: 05/11/24 Subjective: This is a 58 year old female that presents today for initial evaluation regarding a several year history of worsening bilateral hand numbness and tingling that is worse at nighttime. 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 She has tried wrist bracing at night time with some relief. She denies any injury or inciting event. She recently underwent EMG/NCV and is here to discuss results. Physical Examination: LUE: AIN/PIN/Radial/Ulnar/Median motor intact. Radial/Ulnar/Median SILT. 2+/4 Radial/Ulnar pulses palpated. 5/5 APB, 5/5 FDI. Negative Finkelsteins, negative CMC grind, positive Durkan's compression. RUE: AIN/PIN/Radial/Ulnar/Median motor intact. Radial/Ulnar/Median SILT. 2+/4 Radial/Ulnar pulses palpated. 5/5 APB, 5/5 FDI. Negative Finkelsteins, negative CMC grind, positive Durkan's compression. EMG/NCV: 12/28/23 demonstrates moderate bilateral carpal tunnel syndrome Impression: 1.) Bilateral carpal tunnel syndrome Plan: Diagnosis and treatment options were discussed with the patient. She wishes to proceed with a left endoscopic versus open carpal tunnel release due to her advancing symptoms that are no longer responding to conservative treatment and EMG and nerve conduction velocity test findings. Risks and benefits of surgery including bleeding, infection, damage to surrounding tissue, need for further surgery, possible need to convert to open procedure, residual numbness were discussed and the patient wished to go forward with surgery. The patient was agreeable with this plan. -Isaiah Ramsey DO Orthopedic Hand/Upper Extremity Surgeon Past Medical History Past Medical History: Asthma, Fibromyalgia, GERD/Reflux, Hypertension, Osteoarthritis (OA) Additional Past Medical History / Comment(s): allergy induced asthma, lost weight & no longer needs BP med. History of Any Multi-Drug Resistant Organisms: None Reported Past Surgical History: Cholecystectomy, Hysterectomy, Orthopedic Surgery, Tonsillectomy Additional Past Surgical History / Comment(s): sinus surg., arthroscopy bilat knee. Beast biopsy Left breast 2007 Past Anesthesia/Blood Transfusion Reactions: Previous Problems w/ Anesthesia Additional Past Anesthesia/Blood Transfusion Reaction / Comment(s): very high BP after sinus surg-thinks was probably due to a medication given not anesthesia Smoking Status: Never smoker - Past Family History Mother Family Medical History: No Reported History Medications and Allergies Home Medications Medication Instructions Recorded Confirmed Type Fluticasone Propionate 1 spray INHALATION DAILY 07/30/15 05/10/24 History [Fluticasone Propionate Nasal [place]] Meloxicam 15 mg PO DAILY 07/30/15 05/10/24 History Cholecalciferol [Vitamin D3] 1,000 unit PO DAILY 01/06/18 05/10/24 History Multivit with Calcium,Iron,Min 1 each PO DAILY 01/06/18 05/10/24 History [Women's Multivitamin] Omeprazole [PriLOSEC] 20 mg PO DAILY 01/06/18 05/10/24 History Cetirizine HCl [Zyrtec] 10 mg PO DAILY 02/12/21 05/10/24 History Allergies Allergy/AdvReac Type Severity Reaction Status Date / Time Penicillins Allergy Rash/Hives Verified 05/10/24 11:33 Sulfa (Sulfonamide Allergy Rash/Hives Verified 05/10/24 11:33 Antibiotics) codeine AdvReac Confusion Verified 05/10/24 11:33 Physical Examination Osteopathic Statement: *. No significant issues noted on an osteopathic structural exam other than those noted in the History and Physical/Consult.
[~2024-05-12 11:12] MED LIST changes: -LACTATED RINGERS 1,000 ML IV SCH; -ONDANSETRON 4 MG/2 ML VIAL IVP ONE
[2024-05-12 11:35] VITALS: TEMP 96.5
[2024-05-12] MEDS: IV FLUID CONTINUATION 1,000 ML IV ONE (11:36)
[2024-05-12] MEDS: LACTATED RINGERS 1,000 ML IV SCH (11:51)
[2024-05-12] MEDS: DEXAMETHASONE SOD PHOSPHATE 4 MG/ML 1 ML VIAL IVP STA (11:59)
[2024-05-12] MEDS: ONDANSETRON 4 MG/2 ML VIAL IVP STA (11:59)
[2024-05-12] MEDS: SCOPOLAMINE 1 MG/72 HR PATCH TRANSDERM STA (12:00)
[2024-05-12] MEDS ORDERED: PROPOFOL 10 MG/ML 20 ML VIAL IV ONE (12:33)
[2024-05-12] MEDS ORDERED: fentaNYL (PF) 50 MCG/ML 2 ML AMP ONE (12:33)
[2024-05-12] MEDS ORDERED: MIDAZOLAM 2 MG/2 ML VIAL ONE (12:33)
[2024-05-12] MEDS: LIDOCAINE 1% INJ 10MG/ML (20 ML MDV) SQ ONE (12:45)
[2024-05-12] MEDS: BUPIVACAINE (PF) 0.5% 30 ML VIAL SQ ONE (12:45)
--- NOTE | 2024-05-12 12:56 | P.OP ---
Date of Procedure: 05/12/24 Preoperative Diagnosis: Left carpal tunnel syndrome Postoperative Diagnosis: Left carpal tunnel syndrome Procedure(s) Performed: Left endoscopic carpal tunnel release Anesthesia: MAC Surgeon: Isaiah Ramsey Estimated Blood Loss (ml): 0 Pathology: none sent Condition: stable Disposition: PACU Description of Procedure: This is a 58 year old female who presents today for a left endoscopic carpal tunnel release after having failed conservative treatment in the past. Risks and benefits of surgery were discussed with the patient including bleeding, damage to surrounding tissue, infection, need to convert to open procedure, need for further surgery and the patient wished to proceed with surgical intervention. The patients was seen in the pre-operative area by myself. Consent and H&P were completed and updated. The correct extremity was marked in the pre-operative area by myself and all other questions were answered. Operative Narrative: The patient was brought to the operating room by the department of anesthesia. They remained on the portable stretcher and a rolling hand table was brought to the side of the operative extremity. Pre-operative time out was performed indicating the correct patient, procedure and laterality. All in the room agreed. The patient was then drifted off to sleep by the department of anesthesia. MAC anesthesia was utilized and a 50:50 mixture of 1% Lidocaine and 0.5% bupivacaine was injected into the subcutaneous tissues of the palmar skin, 8ccs total. A nonsterile tourniquet was then applied to the operative extremity and the left upper extremity was then prepped and draped in normal sterile fashion. The operative extremity was the exsanguinated with an esmarch bandage and the tourniquet was inflated to 250mmHg. 15 blade scalpel was utilized to make a transverse incision on the palmar skin just ulnar to the palmaris longus tendon at the level of the distal wrist crease. Ragnell retractor was then placed radially and blunt dissection was performed to reveal the distal forearm fascia. This was lifted with fine Fco pick ups and Littler tenotomy scissors were then used to open the forearm fascia transversely and a double skin hook was then placed. Hamate finder was placed into the carpal tunnel and then sequential sized dilators were inserted followed by the synovial elevator to separate the flexor tenosynovium from the undersurface of the transverse carpal ligament and a washboard texture was felt. The MicroAire endoscopic carpal tunnel release system gun was the then inserted into the carpal tunnel hugging the deep portion of the transverse carpal ligament in line with the base of the ring finger. Transverse fibers of the ligament were directly visualized. Pressure was applied on the palm to reveal the distal extent of the transverse carpal ligament. The blade was then deployed and the distal half of the transverse carpal ligament was released. The scope was then brought distal again and remaining transverse fibers were incised with the blade. The proximal half of the transverse carpal ligament was then divided and again the scope was advanced distal and remaining transverse fibers were incised with the blade. The radial and ulnar leaflets were directly visualized and mobile consistent with complete release. Tenotomy scissors were then utilized to release the remaining distal forearm fascia under direct visualization taking care to preserve the palmar cutaneous branch of the median nerve. Skin closure was performed with interrupted 4-0 Monocryl suture followed by steri strips. Sterile dressing was applied consisting 4x4s, Webril, and an racheal bandage. Tourniquet was let down and the hand immediately was well perfused. The patient was then woken by the department of anesthesia and transferred to PACU in stable condition. Isaiah Ramsey D.O. Orthopedic Hand/Upper Extremity Surgeon
[2024-05-12 13:04] VITALS: RESP 18
[2024-05-12 13:16] VITALS: BP 127/82; PULSE 77
== END 2024-05-12 13:46 | disposition home or self-care (01) ==
LOC: OR 11:12
PROVIDERS: ATTEND Orthopaedic Surgery Hand Surgery
DX: G56.03 Carpal tunnel syndrome, bilateral upper limbs (principal); I10 Essential (primary) hypertension; J45.909 Unspecified asthma, uncomplicated; G89.29 Other chronic pain; M79.7 Fibromyalgia; Z88.0 Allergy status to penicillin; Z88.2 Allergy status to sulfonamides; Z88.5 Allergy status to narcotic agent; Z79.1 Long term (current) use of non-steroidal anti-inflammatories (NSAID); Z79.51 Long term (current) use of inhaled steroids; Z79.899 Other long term (current) drug therapy
CPT/HCPCS: 29848; J2250; J1100; J2405; J2001; J3010; J2704; J0665

== ENCOUNTER → 2024-05-20 | Outpatient (CLI) | payer MEDICAID ==
--- NOTE | 2024-05-20 11:34 | BD ---
EXAMINATION TYPE: Axial Bone Density DATE OF EXAM: 05/20/2024 CLINICAL HISTORY: 58 years old Female. ICD-10 CODE: Z78.0 POST MENOPAUSAL Height: 66in Weight: 246lb FRAX RISK QUESTIONS: Glucocorticoids (More than 3mos): yes (Ex: prednisone, prednisolone, methylprednisolone, dexamethasone, and hydrocortisone). Secondary Osteoporosis: 3. Menopause before 45: yes RISK FACTORS HISTORY OF: MEDICATIONS: EXAM MEASUREMENTS: Bone mineral densitometry was performed using the AMDL System. Bone mineral density as measured about the Lumbar spine is: ----- L1-L4(G/cm2): 1.338 T Score Values are as follows: ----- L1: 0.0 ----- L2: 0.9 ----- L3: 1.4 ----- L4: 2.6 ----- L1-L4: 1.3 Z Score Values are as follows: ----- L1: 0.1 ----- L2: 1.0 ----- L3: 1.5 ----- L4: 2.7 ----- L1-L4: 1.4 Bone mineral density has: Decreased -6.8% since study of: 05-25-14 (previous 10-07-18 unavailable for c omps) Bone mineral density about the R hip (g/cm2): 1.151 Bone mineral density about the L hip (g/cm2): 1.149 T Score values are as follows: -----R Neck: 0.0 -----L Neck: 0.2 -----R Total: 1.1 -----L Total: 1.1 Z Score values are as follows: -----R Neck: 0.5 -----L Neck: 0.7 -----R Total: 1.3 -----L Total: 1.2 Bone mineral density has: Decreased -14.2% since study of: 10-07-18 (previous 10-07-18 unavailable for comps) FRAX%s: The graph provided illustrates a 5.5% chance for a major osteoporotic fx and a 0.1% chance fo r the hips probability for fx in 10 years time. IMPRESSION: Normal (Values between +1 and -1 indicate normal bone mass). Consider repeating this study in 5 year s or sooner if there is some new clinical indication. NOTE: T-SCORE=SD OF THE YOUNG ADULT MEAN.
--- NOTE | 2024-05-21 19:08 | MM ---
Reason for Exam: Screening (asymptomatic). Last screening mammogram was performed 12 month(s) ago. Patient History: Menarche at age 10. First Full-Term at age 29. Late child-bearing (after 28). Hysterectomy at age 37. Postmenopausal. Patient has history of breast feeding. Hormonal Contraceptives, starting at age 18 for 8 years. 03/25/2022, Benign Core Biopsy on the right side. 02/09/2008, Benign Core Biopsy on the left side. Risk Values: Alejandra 5 year model risk: 3.0%. NCI Lifetime model risk: 14.6%. Prior Study Comparison: 03/04/2022 Right Diagnostic Mammogram, [facility]. 11/08/2022 Right MG 3D diag mammo w/cad RT, [facility]. 05/05/2023 Bilateral MG 3D screening mammo w/cad, [facility]. Tissue Density: There are scattered areas of fibroglandular density. Findings: Analyzed By CAD. The pattern is symmetrical. Scattered benign punctate calcifications are present bilaterally. Focal asymmetry is within the left breast, stable comparison. Surgical clip is within the left breast. Core marker is within the right breast. No suspicious groups of microcalcifications, spiculated or lobular masses, architectural distortion or other secondary signs of malignancy are mammographically apparent. Overall Assessment: Benign, BI-RAD 2 Management: Screening Mammogram of both breasts in 1 year. A negative mammogram report should not preclude additional follow up of suspicious palpable abnormalities. Patient should continue monthly self breast exam. A clinical breast exam by your physician is recommended on an annual basis and results should be correlated with mammographic findings. Note on Alejandra scores and lifetime risk: 1. A Alejandra score greater than 3% is considered moderate risk. If this is the case, consider specialist referral to assess eligibility for a risk reducing agent. 2. If overall lifetime risk for the development of breast cancer is 20% or higher, the patient may qualify for future screening with alternating mammogram and breast MRI. Electronically signed and approved by: Hany Wu D.O. Radiologis
== END | disposition home or self-care (01) ==
LOC: RADMAMWWP 10:37
PROVIDERS: ATTEND Family Medicine
DX: Z12.31 Encounter for screening mammogram for malignant neoplasm of breast (principal); Z78.0 Asymptomatic menopausal state
CPT/HCPCS: 77063; 77067; 77080